=== PATIENT | female | born 1995 | race Caucasian/White ===

== ENCOUNTER 2017-04-06 22:39 | Inpatient (IN) | payer OTHER ==
[2017-04-06] MEDS ORDERED: LACTATED RINGER'S 1,000 ML IV ×2 (23:35)
[2017-04-06 23:49] LABS: ADD MAN DIFF? NO
[2017-04-06 23:51] LABS: WHITE BLOOD COUNT 14.2 10^3/ul (4.8-10.8)
[2017-04-06 23:51] LABS: BASOPHIL # 0.1 10^3/ul (0.0-0.1); BASOPHILS % 0.4 % (0.0-2.0); EOSINOPHILS % 0.2 % (0.0-7.0); HEMATOCRIT 33.9 % (37.0-47.0); HEMOGLOBIN 11.8 g/dl (12.0-16.0); LYMPHOCYTES # 1.8 10^3/ul (0.8-2.9); LYMPHOCYTES % 12.6 % (18.0-55.0); MEAN CORPUSCULAR HEMOGLOBIN 29.7 pg (29.0-33.0); MEAN CORPUSCULAR HGB CONC 34.8 g/dl (32.0-37.0); MEAN CORPUSCULAR VOLUME 85.4 fl (72.0-104.0); MEAN PLATELET VOLUME 11.5 fl (7.4-10.4); MONOCYTE # 0.9 10^3/ul (0.3-0.9); MONOCYTES % 6.6 % (0.0-13.0); NEUTROPHIL # 11.2 10^3/ul (1.6-7.5); PLATELET COUNT 166 10^3/UL (140-415); RED BLOOD COUNT 3.97 10^6/ul (4.20-5.40)
[2017-04-07] MEDS ORDERED: BUTORPHANOL 2 MG INJ IV ×2
[2017-04-07 00:06] LABS: PARTIAL THROMBOPLASTIN TIME 28.8 Sec (25.0-35.0)
[2017-04-07] MEDS: LACTATED RINGER'S 1,000 ML IV (00:17)
[2017-04-07] MEDS: AMPICILLIN 2 GM/NS (PMX) 100 ML IV (00:17)
[2017-04-07 00:41] LABS: HEPATITIS B SURFACE ANTIGEN NEGATIVE (NEGATIVE)
[2017-04-07] MEDS: OXYTOCIN 30 UNITS/LR 500 ML IV ×3 (01:12→05:33)
[2017-04-07] MEDS: LIDOCAINE 1% (MPF) 30 ML INJ INJ (01:14)
[2017-04-07 01:27] LABS: INR 0.92; PROTIME 12.4 Sec (11.9-14.9)
[2017-04-07] MEDS: LACTATED RINGER'S 1,000 ML IV* ×2 (01:36→09:36)
[2017-04-07] MEDS ORDERED: METHYLERGONOVINE 0.2 MG INJ IM ×2 (02:00)
[2017-04-07] MEDS ORDERED: CARBOPROST 250 MCG INJ IM ×2 (02:00)
[2017-04-07] MEDS ORDERED: MISOPROSTOL 200 MCG TAB PR ×2 (02:00)
[2017-04-07] MEDS ORDERED: OXYCODONE/ASPIRIN (4.88/325) TAB PO (02:00)
[2017-04-07] MEDS ORDERED: OXYTOCIN 30 UNITS/LR 500 ML IV ×2 (02:00)
[2017-04-07] MEDS ORDERED: AMPICILLIN 1 GM/NS (PMX) 50 ML IV (04:00)
[2017-04-07 04:59] LABS: AMPHETAMINE/METHAMPHETAMINE Negative (NEGATIVE); BARBITURATES Negative (NEGATIVE); BENZODIAZEPINES Negative (NEGATIVE); CANNABINOIDS Negative (NEGATIVE); COCAINE Negative (NEGATIVE); OPIATES Negative (NEGATIVE)
[2017-04-07] MEDS: IBUPROFEN 600 MG TAB PO ×3 (05:33→17:24)
[2017-04-07] MEDS: BENZOCAINE 20% 56 ML SPRAY TOP (05:51)
[2017-04-07 15:18] LABS: RAPID PLASMA REAGIN NONREACTIVE (NR)
[2017-04-08] MEDS: IBUPROFEN 600 MG TAB PO ×4 (00:13→18:06)
[2017-04-08] MEDS: LANOLIN 7 GM TUBE TOP (02:47)
[2017-04-08 08:20] LABS: ADD MAN DIFF? NO
[2017-04-08 08:27] LABS: BASOPHIL # 0.1 10^3/ul (0.0-0.1); BASOPHILS % 0.4 % (0.0-2.0); EOSINOPHILS # 0.1 10^3/ul (0.0-0.5); EOSINOPHILS % 0.9 % (0.0-7.0); HEMATOCRIT 31.6 % (37.0-47.0); HEMOGLOBIN 10.7 g/dl (12.0-16.0); LYMPHOCYTES # 3.9 10^3/ul (0.8-2.9); LYMPHOCYTES % 32.9 % (18.0-55.0); MEAN CORPUSCULAR HEMOGLOBIN 29.5 pg (29.0-33.0); MEAN CORPUSCULAR HGB CONC 33.9 g/dl (32.0-37.0); MEAN CORPUSCULAR VOLUME 87.1 fl (72.0-104.0); MEAN PLATELET VOLUME 11.5 fl (7.4-10.4); MONOCYTE # 0.8 10^3/ul (0.3-0.9); MONOCYTES % 6.7 % (0.0-13.0); NEUTROPHIL # 6.8 10^3/ul (1.6-7.5); NEUTROPHILS % 57.5 % (30.0-74.0); PLATELET COUNT 159 10^3/UL (140-415); RED BLOOD COUNT 3.63 10^6/ul (4.20-5.40); RED CELL DISTRIBUTION WIDTH 14.4 % (11.5-14.5)
[2017-04-08 08:27] LABS: WHITE BLOOD COUNT 11.8 10^3/ul (4.8-10.8)
[2017-04-09] MEDS: IBUPROFEN 600 MG TAB PO ×3 (00:05→11:56)
[2017-04-09] MEDS: DIPHTH/TET/ACEL PERTUSS (ADULT) 0.5 ML VIAL IM* (09:52)
== END 2017-04-09 14:55 | disposition home or self-care (01) | DRG 775 ==
LOC: OBT 22:39 → PP1 04-07 03:05 → L-D 22:40 → OBT 23:43 → L-D 23:30
PROVIDERS: Obstetrics & Gynecology
PROC: 10E0XZZ Delivery of Products of Conception, External Approach (ICD-10-PCS; principal; 2017-04-07)
PROC: 0UQMXZZ Repair Vulva, External Approach (ICD-10-PCS; 2017-04-07)
DX: O70.0 First degree perineal laceration during delivery (principal); Z37.0 Single live birth; Z3A.38 38 weeks gestation of pregnancy
CPT/HCPCS: 80307; 85025; 85610; 85730; 86592; 86900; 86901; 87340